=== PATIENT | female | born 1980 | race Caucasian/White ===

== ENCOUNTER 2017-01-19 12:03 | Day surgery (SDC) | payer OTHER ==
[~2017-01-19] VITALS: Ht 162.6 cm; Wt 87.0 kg
[2017-01-19] VITALS (11 sets, daily range): BP systolic 108–124; BP diastolic 65–74; PULSE 60–74; RESP 12–20; Ht 162.6 cm; Wt 87.0 kg
[~2017-01-19 12:03] MED LIST: CEFAZOLIN 1 GM INJ ONE; CEFAZOLIN 2 GM/50 ML (PMX) 50 ML IVPB ONE; SOD CHLORIDE 0.9% 1,000 ML IV SCH
[2017-01-19] MEDS ORDERED: BUPIVACAINE 0.25% (MPF) 30 ML INJ INJ ONE (14:00)
[2017-01-19] MEDS ORDERED: MEPERIDINE 25 MG INJ IV PRN (14:00)
[2017-01-19] MEDS ORDERED: HYDROmorphONE (0.2 MG/ML) 10ML SYG IV PRN ×3 (14:00)
[2017-01-19] MEDS ORDERED: DIPHENHYDRAMINE 50 MG INJ IV PRN (14:00)
[2017-01-19] MEDS ORDERED: PROCHLORPERAZINE 10 MG INJ IV PRN (14:00)
[2017-01-19] MEDS ORDERED: ONDANSETRON 4 MG INJ IV PRN (14:00)
[2017-01-19] MEDS ORDERED: FENTAnyl 50 MCG/ML VIAL IV PRN ×3 (14:00)
[2017-01-19] MEDS ORDERED: OXYCODONE/ACETAMINOPHEN (5/325) TAB PO PRN (14:00)
--- NOTE | 2017-01-19 14:50 | OPR ---
Date/Time of Note Date/Time of Note DATE: 01/19/17 TIME: 14:47 Operative Report Procedure Date: Jan 19, 2017 Preoperative Diagnosis sternal mass and left breast mass Postoperative Diagnosis same Operation Performed 1. excision of sternal mass 5 x 2 cm mass 5 cm incision 2. excision of left breast mass 6 x 3 cm mass 6 cm incision 3. localized adjacent tissue transfer with the use of skin flaps 28 sq cm defect 4. therapeutic injection of subcutaneous marcaine Surgeon: Jihan EASTMAN Specimens sternal mass and left breast mass Indications This is a 36-year-old female with a sternal mass and a left breast mass. Patient requests surgical excision. Procedure Description Patient is taken to the OR and prepped and draped in usual sterile fashion. Surgical timeout is performed. IV antibiotics are given. Elliptical incision is made around the sternal mass in a longitudinal fashion with a 15 blade. Dissection cautery was carried onto the mass in circumference excised. There is good hemostasis. Attention was then paid to the left breast mass. Using an elliptical incision with a 15 blade dissection cautery was carried onto the mass was circumferentially excised. Both surgical sites irrigated with antibiotic irrigation. There is good hemostasis. Due to tissue defect localized adjacent tissue transfer with these of skin flaps were performed in both sites. Multilayer closure with interrupted 3-0 Vicryl and skin tobias. Therapeutic subcutaneous Marcaine is injected into both incisions. Dry dressings were applied. Jihan EASTMAN Jan 19, 2017 14:50
[2017-01-19] MEDS ORDERED: HYDROCODONE/APAP (5/325) TAB PO ONE (15:00)
[2017-01-19] MEDS ORDERED: FENTAnyl 50 MCG/ML VIAL ONE (18:03)
[2017-01-19] MEDS ORDERED: LIDOCAINE 2% (SDV) 5 ML INJ ONE (18:03)
[2017-01-19] MEDS ORDERED: PROPOFOL 20 ML ONE (18:03)
[2017-01-19] MEDS ORDERED: METOCLOPRAMIDE 10 MG INJ ONE (18:03)
[2017-01-19] MEDS ORDERED: DEXAMETHASONE 4 MG/ML 1 ML INJ ONE (18:03)
[2017-01-19] MEDS ORDERED: FAMOTIDINE 20 MG INJ ONE (18:03)
[2017-01-19] MEDS ORDERED: BUPIVACAINE 0.25% (MPF) 30 ML INJ ONE ×2 (18:03)
[2017-01-19] MEDS ORDERED: KETOROLAC 30 MG INJ ONE (18:03)
[2017-01-19] MEDS ORDERED: MIDAZOLAM 1 MG/ML 2 ML INJ ONE (18:03)
[2017-01-19] MEDS ORDERED: ONDANSETRON 4 MG INJ ONE (18:03)
== END 2017-01-19 16:42 | disposition home or self-care (01) ==
LOC: SDS 12:03
PROVIDERS: ATTEND Surgery
DX: L72.0 Epidermal cyst (principal); N60.32 Fibrosclerosis of left breast
CPT/HCPCS: 14001; 19120; 84703; 88307; J0690; J1100; J1885; J2250; J2405; J2765; J3010; Z7512; Z7610